=== PATIENT | female | born 1960 | race American Indian/Alaskan Native ===

== ENCOUNTER 2017-06-10 20:13 | Emergency (ER) | payer SELFPAY ==
[2017-06-10] MEDS ORDERED: CATAPRES PO ONE (20:44)
[2017-06-10] MEDS ORDERED: CATAPRES ONE (20:46)
[2017-06-10 21:21] LABS: Basophils % (Auto) 0.5 % (0.0-1.8); Hematocrit 37.1 % (30.3-42.9); Hemoglobin 12.5 gm/dl (10.1-14.3); Mean Corpuscular HGB Conc 34 % (30-34); Mean Corpuscular Hemoglobin 32 pg (28-32); Mean Corpuscular Volume 96 fl (79-97); Platelet Count 175 K/mm3 (140-440); Red Blood Count 3.87 M/mm3 (3.65-5.03); Red Cell Distribution Width 13.6 % (13.2-15.2); White Blood Count 4.7 K/mm3 (4.5-11.0)
[2017-06-10 21:40] LABS: Blood Urea Nitrogen 16 mg/dL (7-17); Calcium 9.2 mg/dL (8.4-10.2); Carbon Dioxide 26 mmol/L (22-30); Glucose 95 mg/dL (65-100)
[2017-06-10 21:41] LABS: Anion Gap 17 mmol/L; Chloride 103.1 mmol/L (98-107); Potassium 3.7 mmol/L (3.6-5.0); Sodium 142 mmol/L (137-145)
[2017-06-11] MEDS ORDERED: CATAPRES PO ONE (02:07)
--- NOTE | 2017-06-11 04:28 | Emergency Department Report ---
HPI - General Chief Complaint: Chest Pain Time Seen by Provider: 06/11/17 02:06 ED Past Medical Hx - Past Medical History Previous Medical History?: No - Surgical History Past Surgical History?: No - Social History Smoking Status: Never Smoker Substance Use Type: Alcohol - Medications Home Medications: Home Medications Medication Instructions Recorded Confirmed Last Taken Type traMADol [Ultram] 50 mg PO Q6HR PRN #30 tablet 06/11/17 Unknown Rx ED Review of Systems ROS: Stated complaint: CHEST PAINS Other details as noted in HPI Physical Exam - Physical Exam Vital Signs: Vital Signs 06/10/17 06/10/17 06/10/17 20:32 20:45 21:57 Temperature 98 F Pulse Rate 74 74 77 Respiratory 18 18 Rate Blood Pressure 183/130 183/130 175/123 O2 Sat by Pulse 100 100 Oximetry 06/11/17 06/11/17 06/11/17 02:05 02:10 02:15 Temperature Pulse Rate 63 61 Respiratory 12 12 Rate Blood Pressure 160/111 172/118 O2 Sat by Pulse 100 100 Oximetry 06/11/17 06/11/17 06/11/17 02:30 02:34 02:45 Temperature 97.9 F Pulse Rate 63 63 64 Respiratory 15 16 17 Rate Blood Pressure 160/111 160/111 169/114 O2 Sat by Pulse 100 100 100 Oximetry 06/11/17 06/11/17 06/11/17 03:00 03:15 03:30 Temperature Pulse Rate 60 61 64 Respiratory 16 15 14 Rate Blood Pressure 167/107 142/101 133/94 O2 Sat by Pulse 99 100 100 Oximetry 06/11/17 03:45 Temperature Pulse Rate 65 Respiratory 15 Rate Blood Pressure 133/94 O2 Sat by Pulse 99 Oximetry Physical Exam: GENERAL: The patient is well-developed well-nourished [] HEENT: Normocephalic. Atraumatic. Extraocular motions are intact. Patient has moist mucous membranes. NECK: Supple. No meningitic signs are noted. There is no adenopathy noted. CHEST/LUNGS: Clear to auscultation. There is no respiratory distress noted. HEART/CARDIOVASCULAR: Regular. There is no tachycardia. There is no gallop rub or murmur. ABDOMEN: Abdomen is soft, nontender. Patient has normal bowel sounds. There is no abdominal distention. SKIN: There is no rash. There is no edema. There is no diaphoresis. NEURO: The patient is awake, alert, and oriented. The patient is cooperative. The patient has no focal neurologic deficits. The patient has normal speech. Cranial nerves II through XII grossly intact, no drift. Moves all extremities well MUSCULOSKELETAL: There is no evidence of acute injury. ED Course Vital Signs 06/10/17 06/10/17 06/10/17 20:32 20:45 21:57 Temperature 98 F Pulse Rate 74 74 77 Respiratory 18 18 Rate Blood Pressure 183/130 183/130 175/123 O2 Sat by Pulse 100 100 Oximetry 06/11/17 06/11/17 06/11/17 02:05 02:10 02:15 Temperature Pulse Rate 63 61 Respiratory 12 12 Rate Blood Pressure 160/111 172/118 O2 Sat by Pulse 100 100 Oximetry 06/11/17 06/11/17 06/11/17 02:30 02:34 02:45 Temperature 97.9 F Pulse Rate 63 63 64 Respiratory 15 16 17 Rate Blood Pressure 160/111 160/111 169/114 O2 Sat by Pulse 100 100 100 Oximetry 06/11/17 06/11/17 06/11/17 03:00 03:15 03:30 Temperature Pulse Rate 60 61 64 Respiratory 16 15 14 Rate Blood Pressure 167/107 142/101 133/94 O2 Sat by Pulse 99 100 100 Oximetry 06/11/17 03:45 Temperature Pulse Rate 65 Respiratory 15 Rate Blood Pressure 133/94 O2 Sat by Pulse 99 Oximetry ED Medical Decision Making - Lab Data Result diagrams: 06/10/17 21:05 06/10/17 21:05 Critical care attestation.: If time is entered above; I have spent that time in minutes in the direct care of this critically ill patient, excluding procedure time. ED Disposition Clinical Impression: Chest pain Qualifiers: Chest pain type: other chest pain Qualified Code(s): R07.89 - Other chest pain ; R07.8 - Other chest pain Disposition: - TO HOME OR SELFCARE Is pt being admited?: No Does the pt Need Aspirin: No Condition: Stable Instructions: Chest Pain (ED) Prescriptions: traMADol [Ultram] 50 mg PO Q6HR PRN #30 tablet PRN Reason: Pain Referrals: PRIMARY CARE,MD [Primary Care Provider] - 3-5 Days
[2017-06-11 04:42] VITALS: BP 114/75
--- NOTE | 2017-06-11 08:33 | XRay Report ---
PA and lateral chest: Chest pain. The aorta is tortuous. The heart is normal in size. There is no vascular congestion. The lungs are clear. No priors for comparison. Impression: No acute findings.
== END 2017-06-11 04:42 | disposition home or self-care (01) ==
LOC: ED 20:13
DX: R07.9 Chest pain, unspecified (principal)
CPT/HCPCS: 36415; 71020; 80048; 84484; 85025; 93005; 93010; 99284